=== PATIENT | male | born 1950 | race Caucasian/White ===

== ENCOUNTER → 2021-07-20 10:28 | Outpatient (CLI) | payer MEDICARE, OTHER, SELFPAY ==
--- NOTE | 2021-07-20 10:31 | DI.MRI.S_ITS ---
PROCEDURE: MR LUMBAR SPINE WO CON INDICATIONS: Radiculopathy, lumbar region TECHNIQUE: Noncontrast sagittal T1 spin echo and T2 fast echo, sagittal STIR, and T2 fast spin echo through the lumbar spine. In cases with scoliosis, additional coronal T2 fast spin echo may be performed. COMPARISON: None. FINDINGS: Image quality: Excellent. Alignment and Curvature: There is normal bony alignment. Convex left scoliosis. Bone Marrow: Modic type 2 reactive endplate changes noted adjacent to the L3-L4 and L5-S1 discs. Benign, intraosseous hemangioma noted in the L4 vertebral body. No acute vertebral body compression fractures. Spinal Cord: Conus medullaris terminates at the L1 level. Visualized cord demonstrates normal signal and size. Paraspinous Soft Tissues: No paravertebral masses. T12-L1: Normal appearance. L1-L2: Loss of disc signal and slight loss of disc height. Moderate, diffuse disc bulge. Mild narrowing of the central canal. Mild bilateral neural foraminal narrowing. No neural compression. L2-L3: Loss of disc signal and height. Mild, diffuse disc bulge. Mild narrowing of the central canal. Mild bilateral neural foraminal narrowing. No neural compression. L3-L4: Loss of disc signal and height. Mild to moderate diffuse disc bulge. Mild bilateral facet hypertrophy. Mild narrowing of the central canal. Mild bilateral neural foraminal narrowing. No neural compression. L4-L5: Loss of disc signal and mild loss of disc height. Moderate, diffuse disc bulge. Mild bilateral facet hypertrophy. Mild narrowing of the central canal. Moderate bilateral neural foraminal narrowing. No neural compression. L5-S1: Loss of disc signal and mild loss of disc height. Mild, diffuse disc bulge. Mild right and moderate left facet hypertrophy. No central stenosis. Severe left neural foraminal narrowing with compression of the exiting left L5 nerve root. IMPRESSION: 1. Convex left scoliosis. 2. Multilevel degenerative disc disease 3. Multilevel facet arthropathy. 4. No severe central canal narrowing. 5. Severe left L5-S1 neural foraminal narrowing with compression of the exiting left L5 nerve root. Dictated by: Caryn Trevino MD, PhD on 07/21/2021 at 11:17 Approved by: Caryn Trevino MD, PhD on 07/21/2021 at 11:27
== END ==
PROVIDERS: Referring Provider Physical Medicine & Rehabilitation; Visit Provider Physical Medicine & Rehabilitation
DX: M54.16 Radiculopathy, lumbar region (principal); M41.86 Other forms of scoliosis, lumbar region; M51.36 Other intervertebral disc degeneration, lumbar region; M48.061 Spinal stenosis, lumbar region without neurogenic claudication; M48.07 Spinal stenosis, lumbosacral region; M47.816 Spondylosis without myelopathy or radiculopathy, lumbar region
CPT/HCPCS: 72148

== ENCOUNTER → 2023-12-27 08:10 | Outpatient (CLI) | payer MEDICARE, OTHER, SELFPAY ==
--- NOTE | 2023-12-27 09:00 | DI.MRI.S_ITS ---
PROCEDURE: MR LUMBAR SPINE WO CON INDICATIONS: LUMBAR RADICULOPATHY TECHNIQUE: Noncontrast sagittal T1 spin echo and T2 fast echo, sagittal STIR, and T2 fast spin echo through the lumbar spine. In cases with scoliosis, additional coronal T2 fast spin echo may be performed. COMPARISON: [facility], MR, MR LUMBAR SPINE WO CON, 07/20/2021, 10:42. FINDINGS: Image quality: Excellent. Alignment and Curvature: Convex left scoliosis, Luna angle 28 degrees. Bone Marrow: Vertebral hemangioma in the L3 vertebral body. Spinal Cord: Conus medullaris terminates at the L1 level. Visualized cord demonstrates normal signal and size. Paraspinous Soft Tissues: No paravertebral masses. T12-L1: Broad-based disc bulge. L1-L2: Broad-based disc bulge. Small facet effusions. Mild to moderate right neural foraminal narrowing. L2-L3: Broad-based disc bulge. Probable annular fissure. Facet effusions and hypertrophy. Severe right and moderate left neural foraminal narrowing. Mild spinal canal narrowing. L3-L4: Broad-based disc bulge. Facet effusions and facet hypertrophy. Severe right neural foraminal narrowing and moderate left neural foraminal narrowing. L4-L5: Asymmetric left extraforaminal herniation. Small right facet effusion. Moderate to severe left neural foraminal narrowing. L5-S1: Severe disc height loss. IMPRESSION: Multilevel degenerative disc disease and facet arthrosis, progressed since 2021. Of note: Up to mild spinal canal narrowing at L2-3. Up to severe neural foraminal narrowing at L2-3, L3-4. Dictated by: Kalia Ty M.D. on 12/27/2023 at 13:36 Approved by: Kalia Ty M.D. on 12/27/2023 at 13:40
== END ==
PROVIDERS: PCP Nurse Practitioner Family; Referring Provider Nurse Practitioner Family; Visit Provider Nurse Practitioner Family
DX: M51.16 Intervertebral disc disorders with radiculopathy, lumbar region (principal); M47.26 Other spondylosis with radiculopathy, lumbar region; M48.061 Spinal stenosis, lumbar region without neurogenic claudication
CPT/HCPCS: 72148

== ENCOUNTER → 2024-11-24 12:24 | Outpatient (CLI) | payer MEDICARE, OTHER, SELFPAY ==
--- NOTE | 2024-11-24 12:26 | EKG_ITS ---
[place] [id number] [address] [place] [id number] Test Date: 2024-11-24 Pat Name: Jefferson Pruett Department: [facility] Room: Gender: Male [employer] Technician: PAULA : 1950 Requested By: Order Number: [id number] Reading MD: Kyle Lu Measurements Intervals [place] Rate: 64 P: 50 NC: 228 QRS: -30 QRSD: 106 T: 46 QT: 388 QTc: 400 Interpretive Statements Sinus rhythm with 1st degree AV block Left axis deviation Electronically Signed On 12-08-2024 8:11:05 PDT by Kyle Lu
== END ==
PROVIDERS: PCP Nurse Practitioner Family; Referring Provider Student in an Organized Health Care Education/Training Program; Visit Provider Student in an Organized Health Care Education/Training Program
DX: Z79.899 Other long term (current) drug therapy (principal)
CPT/HCPCS: 93005